=== PATIENT | male | born 1940 | race Caucasian/White ===

== ENCOUNTER 2018-03-10 16:15 | Outpatient (CLI) | payer MEDICARE, BC | END 2018-03-10 16:16 | disposition home or self-care (01) | LOC: BICRAD 16:15 | PROVIDERS: ATTEND Nurse Practitioner Acute Care | DX: L03.90 Cellulitis, unspecified (principal); R11.0 Nausea; C90.00 Multiple myeloma not having achieved remission; C79.51 Secondary malignant neoplasm of bone ==

== ENCOUNTER 2018-12-28 13:08 | Outpatient (CLI) | payer MEDICARE, BC ==
[~2018-12-28 13:08] MED LIST: Gadobenate Dimeglumine 529 MG/1 ML (20ML VIAL) ONE
--- NOTE | 2018-12-28 15:18 | MRI ---
MR of the thoracic spine with and without contrast INDICATION: History of multiple myeloma Contrast: 10 cc of MultiHance Comparison prior exam dated 05/02/2013 FINDINGS: The compression abnormalities involving T6, T9 and L1 appear stable. No acute pathologic fr acture is evident. The mild dilatation involving the central spinal canal involving the mid thoracic spinal cord is stable. There is mild multilevel spondylosis of the thoracic spine. The visua lized paraspinal and visualized retroperitoneal soft tissues appear within normal limits. IMPRESSION: 1. Stable moderate compression abnormality at T6, mild superimposed compression abnormality at T9 and moderate wedge compression abnormality of L1. No new compression abnormality is demonstrated. 2. Mild dilatation involving the central spinal canal of the mid thoracic spinal cord is stable. 3. No new suspicious bone marrow signal abnormality is evident.
== END 2018-12-28 13:09 | disposition home or self-care (01) ==
LOC: MRI 13:08
PROVIDERS: ATTEND Internal Medicine Hematology & Oncology
DX: C90.00 Multiple myeloma not having achieved remission (principal); C79.51 Secondary malignant neoplasm of bone; M54.9 Dorsalgia, unspecified
CPT/HCPCS: 72157; A9577

== ENCOUNTER 2021-05-01 10:52 | Outpatient (CLI) | payer OTHER, MEDICARE, BC | END 2021-05-01 10:53 | disposition home or self-care (01) | LOC: BICRAD 10:52 | PROVIDERS: ATTEND Internal Medicine Hematology & Oncology | DX: C90.00 Multiple myeloma not having achieved remission (principal); C79.51 Secondary malignant neoplasm of bone; N18.30 Chronic kidney disease, stage 3 unspecified; R91.8 Other nonspecific abnormal finding of lung field; S22.31XA Fracture of one rib, right side, initial encounter for closed fracture; V89.2XXA Person injured in unspecified motor-vehicle accident, traffic, initial encounter | CPT/HCPCS: 71046 ==

== ENCOUNTER 2021-05-05 15:33 | Outpatient (CLI) | payer MEDICARE, BC | END 2021-05-05 15:34 | disposition home or self-care (01) | LOC: BICCT 15:33 | PROVIDERS: ATTEND Internal Medicine Hematology & Oncology | DX: C90.00 Multiple myeloma not having achieved remission (principal); C79.51 Secondary malignant neoplasm of bone; R91.8 Other nonspecific abnormal finding of lung field; K80.20 Calculus of gallbladder without cholecystitis without obstruction | CPT/HCPCS: 71250 ==

== ENCOUNTER 2021-05-08 11:40 | Outpatient (CLI) | payer MEDICARE, BC | END 2021-05-08 11:41 | disposition home or self-care (01) | LOC: PET 11:40 | PROVIDERS: ATTEND Internal Medicine Hematology & Oncology | DX: R91.8 Other nonspecific abnormal finding of lung field (principal) | CPT/HCPCS: 78815; A9552 ==

== ENCOUNTER 2021-05-12 11:12 | Outpatient (CLI) | payer MEDICARE, BC ==
[2021-05-12 22:33] LABS: SARS-CoV-2 PCR by NAA Not Detected (NotDetected)
== END 2021-05-12 11:13 | disposition home or self-care (01) ==
LOC: LABBT 11:12
PROVIDERS: ATTEND Internal Medicine Hematology & Oncology
DX: Z01.812 Encounter for preprocedural laboratory examination (principal); R91.8 Other nonspecific abnormal finding of lung field; N18.30 Chronic kidney disease, stage 3 unspecified; Z20.822 Contact with and (suspected) exposure to COVID-19
CPT/HCPCS: U0003; U0005

== ENCOUNTER 2021-05-15 08:08 | Day surgery (SDC) | payer MEDICARE, BC ==
[2021-05-15 08:36] LABS: PTT 33.5 sec (22.9-36.1); Prothrombin Time 13.7 sec (12.0-14.7)
[2021-05-15 10:23] VITALS: BP 175/72; TEMP 97.6
== END 2021-05-15 13:32 | disposition home or self-care (01) ==
LOC: CT 08:08
PROVIDERS: ATTEND Internal Medicine Hematology & Oncology
PROC: 0BBC3ZX Excision of Right Upper Lung Lobe, Percutaneous Approach, Diagnostic (ICD-10-PCS; principal; 2021-05-15)
DX: J84.10 Pulmonary fibrosis, unspecified (principal); J18.9 Pneumonia, unspecified organism; I12.9 Hypertensive chronic kidney disease with stage 1 through stage 4 chronic kidney disease, or unspecified chronic kidney disease; E11.22 Type 2 diabetes mellitus with diabetic chronic kidney disease; N18.9 Chronic kidney disease, unspecified; D63.1 Anemia in chronic kidney disease; C90.00 Multiple myeloma not having achieved remission; G89.29 Other chronic pain; M54.5 Low back pain; I25.10 Atherosclerotic heart disease of native coronary artery without angina pectoris; E11.40 Type 2 diabetes mellitus with diabetic neuropathy, unspecified; M19.011 Primary osteoarthritis, right shoulder; Z88.2 Allergy status to sulfonamides; Z88.8 Allergy status to other drugs, medicaments and biological substances; Z79.4 Long term (current) use of insulin; Z79.82 Long term (current) use of aspirin; Z79.02 Long term (current) use of antithrombotics/antiplatelets; Z79.899 Other long term (current) drug therapy; Z95.5 Presence of coronary angioplasty implant and graft; Z95.1 Presence of aortocoronary bypass graft
CPT/HCPCS: 32408; 71045; 77012; 85610; 85730; 88305; 88312; 88333; 88341; 88342

== ENCOUNTER 2021-06-25 14:54 | Outpatient (CLI) | payer MEDICARE, BC | END 2021-06-25 14:55 | disposition home or self-care (01) | LOC: BICCT 14:54 | PROVIDERS: ATTEND Internal Medicine Critical Care Medicine | DX: R91.8 Other nonspecific abnormal finding of lung field (principal) | CPT/HCPCS: 71250 ==

== ENCOUNTER 2021-11-27 08:24 | Outpatient (CLI) | payer MEDICARE, BC | END 2021-11-27 08:25 | disposition home or self-care (01) | LOC: BICCT 08:24 | PROVIDERS: ATTEND Internal Medicine Critical Care Medicine | DX: R91.8 Other nonspecific abnormal finding of lung field (principal) | CPT/HCPCS: 71250 ==

== ENCOUNTER 2022-04-23 11:45 | Outpatient (CLI) | payer MEDICARE, BC | END 2022-04-23 11:46 | disposition home or self-care (01) | LOC: PET 11:45 | PROVIDERS: ATTEND Internal Medicine Hematology & Oncology | DX: C90.00 Multiple myeloma not having achieved remission (principal) | CPT/HCPCS: 78815; A9552 ==